=== PATIENT | male | born 1980 | race Caucasian/White ===

== ENCOUNTER 2017-10-04 12:08 | Day surgery (SDC) | payer OTHER ==
[2017-10-04] MEDS: NS 1,000 ML IV (12:24)
[2017-10-04] MEDS ORDERED: PROPOFOL 200 MG/20 ML VIAL As Ordered ×2 (13:18→13:19)
[2017-10-04] MEDS ORDERED: fentaNYL 100 MCG/2 ML INJECTION (J3010) As Ordered (13:19)
[2017-10-04] MEDS ORDERED: LIDOCAINE 2% INJ 100 MG/5 ML SDV (FOR ANES.) As Ordered (13:36)
== END 2017-10-04 14:23 | disposition home or self-care (01) ==
LOC: M OPP 12:08
DX: K92.1 Melena (principal); K64.8 Other hemorrhoids; B96.81 Helicobacter pylori [H. pylori] as the cause of diseases classified elsewhere; K29.70 Gastritis, unspecified, without bleeding; R11.0 Nausea; R10.9 Unspecified abdominal pain; M51.9 Unspecified thoracic, thoracolumbar and lumbosacral intervertebral disc disorder; Z86.11 Personal history of tuberculosis; F17.210 Nicotine dependence, cigarettes, uncomplicated
CPT/HCPCS: 45378

== ENCOUNTER 2022-04-11 08:43 | Emergency (ER) | payer OTHER ==
[~2022-04-11] VITALS: Ht 172.7 cm; Wt 63.5 kg
[~2022-04-11 08:43] MED LIST: NO MEDICATIONS
[2022-04-11] MEDS ORDERED: ADDE1TAB20 PO (08:50)
[2022-04-11] MEDS ORDERED: IBUP200C90 PO (08:50)
[2022-04-11] MEDS ORDERED: GABA-283 PO (08:50)
[2022-04-11] MEDS ORDERED: TRAZ-252 PO (08:50)
[2022-04-11] MEDS ORDERED: LEXA5TAB13 PO (08:50)
[2022-04-11] MEDS ORDERED: PRED10TA2 PO (11:53)
[2022-04-11 12:37] VITALS: BP 141/86
== END 2022-04-11 12:40 | disposition home or self-care (01) ==
LOC: M ED 08:43
DX: M54.50 Low back pain, unspecified (principal); M51.27 Other intervertebral disc displacement, lumbosacral region; M51.37 Other intervertebral disc degeneration, lumbosacral region; F17.200 Nicotine dependence, unspecified, uncomplicated